=== PATIENT | female | born 2000 | race Two or more races ===

== ENCOUNTER 2022-02-02 05:05 | Inpatient (IN) | payer OTHER ==
[~2022-02-02] VITALS: Ht 154.9 cm; Wt 78.5 kg
[2022-02-02] MEDS ORDERED: PRENATAL CAPLE1 EAC1 (07:57)
[2022-02-06] MEDS ORDERED: ATABEX OB TABL1 EACH (08:06)
[2022-02-06] MEDS ORDERED: PROFERRIN-FORT1 EACH (08:06)
== END 2022-02-06 08:35 | disposition home or self-care (01) | DRG 805 ==
LOC: LDR 05:05 → OB/GYN 05:05 → LDR 08:17 → OB/GYN 02-03 08:06
PROVIDERS: ADMIT Obstetrics & Gynecology; ATTEND Obstetrics & Gynecology
PROC: 10E0XZZ Delivery of Products of Conception, External Approach (ICD-10-PCS; principal; 2022-02-02)
PROC: 0HQ9XZZ Repair Perineum Skin, External Approach (ICD-10-PCS; 2022-02-02)
PROC: 8E0ZXY6 Isolation (ICD-10-PCS; 2022-02-02)
PROC: 4A1HXCZ Monitoring of Products of Conception, Cardiac Rate, External Approach (ICD-10-PCS; 2022-02-02)
PROC: 3E0P7VZ Introduction of Hormone into Female Reproductive, Via Natural or Artificial Opening (ICD-10-PCS; 2022-02-02)
PROC: 3E033VJ Introduction of Other Hormone into Peripheral Vein, Percutaneous Approach (ICD-10-PCS; 2022-02-02)
PROC: 30233N1 Transfusion of Nonautologous Red Blood Cells into Peripheral Vein, Percutaneous Approach (ICD-10-PCS; 2022-02-04)
DX: O70.0 First degree perineal laceration during delivery (principal); U07.1 COVID-19; Z37.0 Single live birth; O14.23 HELLP syndrome (HELLP), third trimester; O46.093 Antepartum hemorrhage with other coagulation defect, third trimester; O98.513 Other viral diseases complicating pregnancy, third trimester; O90.81 Anemia of the puerperium; D64.89 Other specified anemias; Z3A.39 39 weeks gestation of pregnancy